=== PATIENT | male | born 1970 | race Caucasian/White ===

== ENCOUNTER 2018-02-26 08:53 | Emergency (ER) | payer MEDICAID ==
[~2018-02-26] VITALS: Ht 182.9 cm; Wt 95.3 kg
[2018-02-26 09:02] VITALS: BP 131/92
[2018-02-26] MEDS ORDERED: KETOROLAC TROMETH 60MG/2ML VIAL IM ONE (10:45)
== END 2018-02-26 11:18 | disposition home or self-care (01) ==
LOC: ER 08:53
DX: S52.514A Nondisplaced fracture of right radial styloid process, initial encounter for closed fracture (principal); M25.572 Pain in left ankle and joints of left foot; V43.52XA Car driver injured in collision with other type car in traffic accident, initial encounter; Y93.89 Activity, other specified; Y92.89 Other specified places as the place of occurrence of the external cause; Y99.8 Other external cause status
CPT/HCPCS: 29125; 73110; 73610; 96372; 99284; J1885; L3260